=== PATIENT | male | born 1985 | race Caucasian/White ===

== ENCOUNTER 2023-03-17 12:48 | Emergency (ER) | payer OTHER, SELFPAY ==
--- NOTE | ~2023-03-17 | XR_ITS ---
EXAMINATION: XR CHEST CLINICAL INFORMATION: Reason for Exam shortness of breath COMPARISON: None TECHNIQUE: 2 views of the chest FINDINGS: Lines and tubes: None. Bibasilar opacities suspicious for infection or aspiration. No pleural effusion. No pneumothorax. Normal cardiomediastinal silhouette. XR/XR chest 2V IMPRESSION: Bibasilar opacities suspicious for infection or aspiration.
[2023-03-17 12:56] VITALS: BP 120/71; PULSE 103; RESP 16; TEMP 36.8; O2SAT 96; BMI 24.7
--- NOTE | 2023-03-17 12:59 | ED.GENADULT ---
HPI - General Adult General Chief complaint: Upper Respiratory Symptoms Stated complaint: congestion Time Seen by Provider: 03/17/23 13:43 Source: patient Mode of arrival: ambulatory Limitations: no limitations History of Present Illness HPI narrative: 37-year-old male with a history of opiate use disorder here with complaints of 1 week of chest congestion, productive cough with yellow phlegm, body aches. no shortness of breath, chest pain, headache, neck pain or neck stiffness, vomiting, diarrhea, skin rash. No recent travel or sick contact. Patient reports former history of IV drug abuse but is currently taking Suboxone Related Data Previous Rx's Medication Instructions Recorded amoxicillin 875 mg-potassium 1 tab PO BID #14 tabs 03/17/23 clavulanate 125 mg tablet benzonatate 200 mg capsule 200 mg PO TID PRN cough #30 caps 03/17/23 prednisone 20 mg tablet 40 mg (2 x 20 mg) PO DAILY 4 days 03/17/23 #8 tabs Allergies Allergy/AdvReac Type Severity Reaction Status Date / Time No Known Allergies Allergy Unverified 03/04/20 15:44 Review of Systems Review of Systems: Yes all other systems are reviewed and are negative Constitutional: Constitutional: Reports no additional constitutional complaints, Reports body ache(s), Denies chills, Denies fever(s), Denies headache(s) and Denies weakness Eyes: Eyes: Reports no additional eye complaints and Denies change in vision ENT: Reports system reviewed and no additional complaints, except as documented, Denies dizziness, Denies headache(s), Reports nasal congestion, Denies nasal discharge and Denies neck pain Cardiovascular: Cardiovascular: Reports no additional cardiovascular complaints, Denies chest pain, Denies leg edema and Denies dyspnea Respiratory: Respiratory: Reports no additional respiratory complaints and Denies dyspnea Gastrointestinal: Gastrointestinal: Reports no additional gastrointestinal complaints, Denies abdominal pain, Denies diarrhea, Denies nausea and Denies vomiting Genitourinary: Genitourinary: Denies urinary incontinence Musculoskeletal: Musculoskeletal: Reports no additional musculoskeletal complaints, Denies back pain, Denies arthralgias, Denies joint swelling, Denies neck pain, Denies numbness and Denies tingling Integumentary/Breasts: Skin/Breast: Reports system reviewed and no additional complaints, except as docu and Denies rash Neurologic: Reports system reviewed and no additional complaints, except as documented, Denies Abnormal speech present, Denies dizziness, Denies headache(s), Denies numbness, Denies tingling and Denies weakness PMFSH Past Medical History Attestation statement: The following information was validated with the patient. Source: old records reviewed and nursing notes reviewed Social History Social History Alcohol intake: never Smoked in Last 30 Days: Yes Use of substances other than those prescribed or required for medical reasons: No Substance Use Type: Former Substance User Advance Directives: No Advance Directives Information Provided: No Physical Exam ED Vital Signs: Vital Signs - 24 hr 03/17/23 12:56 03/17/23 13:25 03/17/23 14:00 Temperature 98.3 F 98.5 F Pulse Rate 103 H 98 Respiratory Rate 16 20 Blood Pressure 120/71 115/66 Pulse Oximetry 96 96 95 Oxygen Delivery Method Room Air Room Air 03/17/23 14:29 Temperature Pulse Rate 92 Respiratory Rate 19 Blood Pressure Pulse Oximetry Oxygen Delivery Method BMI result Body Mass Index 24.7 Const General: cooperative, healthy appearing, comfortable and no acute distress Orientation/consciousness: patient oriented x3 Limitations: no limitations HENMT Head: Yes normal to inspection Ears: hearing grossly normal bilaterally and TM abnormal bulging bilateral; not erythematous General nose exam: Normal external nose present Face and sinus: Yes normal facial exam Mouth: Normal oral and palatal mucosa present Throat: Yes posterior oropharynx normal, Yes tonsils normal and Yes uvula midline Eyes General: appearance normal, both eyes and all related structures Pupils: Equal, round and reactive pupils present Neck Neck: Yes normal visual inspection, Yes full ROM, Yes no lymphadenopathy and Yes no meningeal signs Chest Chest palpation & inspection: normal inspection of the chest Resp Effort & Inspection: normal respiratory effort Auscultation: wheezes Cardio Rate: regular rate Rhythm: regular rhythm Peripheral pulses: Peripheral pulses 2+ throughout GI Inspection: Yes normal to inspection Palpation (GI): Soft to palpation and nontender Auscultation: normal bowel sounds Back/Spine/Pelvis Thoracic/Lumbar Spine: thoracic and lumbar spine normal to inspection Skin General skin exam: no rashes or lesions noted Neuro General: patient oriented x3, no meningeal signs, no focal motor deficits and normal sensation to monofilament Cranial nerves: Yes Equal, round and reactive pupils present Cognition (Neuro): normal cognition Speech: No Abnormal speech present Gait exam (Neuro): Normal gait present Motor exam (neuro): 5/5 motor strength present throughout Extrem General: Yes normal to inspection, Yes no pedal edema and Yes no calf tenderness Course Course Course Narrative: RME- 37 year old male presents for evaluation of congetion, body aches. Plan for viral swabs and chest x-ray Reevaluation(s) Reevaluation #1: COVID and flu testing are negative. Chest x-ray is consistent with bilateral pneumonia. Patient is not hypoxic and ambulated in the emergency department with oxygen saturations greater than 93%. He is nontoxic appearing, afebrile. Patient can be discharged home with course of antibiotics, prednisone, p.r.n. Tessalon and albuterol MDI. Reviewed worrisome signs and symptoms of when to return to the emergency room. Comfortable plan for discharge home. Medications Administered Discontinued Medications Generic Name Dose Route Start Last Admin Trade Name Freq PRN Reason Stop Dose Admin Albuterol Sulfate 2 puff 03/17/23 13:52 03/17/23 14:28 Albuterol Sulfate 90 Mcg 8 Gm Inhaler INHALE 03/17/23 13:53 2 puff ONCE ONE Administration Albuterol/Ipratropium 3 ml 03/17/23 13:52 03/17/23 14:28 Albuterol/Iprat 2.5/0.5mg 3 Ml Ampul.Neb INHALE 03/17/23 13:53 3 ml ONCE ONE Administration Amoxicillin/Clavulanate Potassium 875 mg 03/17/23 13:59 03/17/23 14:04 Amoxicillin/Potassium Clav 875 Mg Tablet PO 03/17/23 14:00 875 mg ONCE ONE Administration Prednisone 60 mg 03/17/23 13:52 03/17/23 13:55 Prednisone 20 Mg Tablet PO 03/17/23 13:53 60 mg ONCE ONE Administration Medical Decision Making Medical Decision Making MDM Narrative: 37-year-old male with a history of opiate use disorder here with complaints of 1 week of chest congestion, productive cough with yellow phlegm, body aches. no shortness of breath, chest pain, headache, neck pain or neck stiffness, vomiting, diarrhea, skin rash. No recent travel or sick contact. Patient reports former history of IV drug abuse but is currently taking Suboxone patient has wheezing throughout. exam otherwise is benign. Vitals are stable. Will send testing for flu and COVID. Will obtain chest x-ray. Differential Diagnosis Differential Diagnoses: The differential diagnosis associated with the presentation includes Viral syndrome, pneumonia, influenza Admission/Observation Consideration of admission/observation: Escalation of care including admission/observation considered no hypoxia, afebrile, nontoxic-appearing. Does not require hospitalization or supplemental oxygen Lab Data MDM Lab Attestation statement: I reviewed the patient's lab results. COVID and flu testing are negative Labs: Lab Results 03/17/23 Range/Units 13:04 COVID-19 (AKASH) Negative (Negative) COVID-19 Clin Com See Note Influenza Type A ([facility]A) Negative (Negative) Influenza Type B ([facility]A) Negative (Negative) Influenza A & B Note See Note Independent Interpretation I performed an independent interpretation of an: Plain X-Ray Interpretation: I independently reviewed the x-ray and agree with the rad report Radiology Impression Discussion of test interpretation with radiology: I have reviewed the radiologist's reading. Radiologist Impression: [place] [id number] XRay Report Signed Patient: Abram Paz MR#: [id number] : 1985 Acct:[id number] Age/Sex: 37 / M ADM Date: 03/17/23 Loc: .ED Attending Dr: Ordering Physician: Andi Briceno Date of Service: 03/17/23 Procedure(s): XR chest 2V Accession Number(s): [id number] cc: Andi Briceno ; Physician,None ~ EXAMINATION: XR CHEST CLINICAL INFORMATION: Reason for Exam shortness of breath COMPARISON: None TECHNIQUE: 2 views of the chest FINDINGS: Lines and tubes: None. Bibasilar opacities suspicious for infection or aspiration. No pleural effusion. No pneumothorax. Normal cardiomediastinal silhouette. XR/XR chest 2V IMPRESSION: Bibasilar opacities suspicious for infection or aspiration. Prescription Management I considered prescription management with: Antibiotic Discharge Plan Discharge Clinical Impression: Pneumonia Patient Disposition: Home, Self-Care Instructions: Community Acquired Pneumonia (ED) Additional Instructions: Testing for flu and COVID are negative. Take your antibiotic and prednisone starting tomorrow Use the inhaler 2 puffs every 4 hours as needed for cough or wheezing Return for worsening symptoms Prescriptions: New prednisone 20 mg tablet 40 mg PO DAILY 4 Days Qty: 8 0RF amoxicillin-pot clavulanate 875-125 mg tablet 1 tab PO BID Qty: 14 0RF benzonatate 200 mg capsule 200 mg PO TID PRN (Reason: cough) Qty: 30 0RF Referrals: Physician,None [Primary Care Provider] - 5 days Stand Alone Forms: Work/School Release
[2023-03-17 13:25] VITALS: O2SAT 96
[2023-03-17 13:31] LABS: COVID-19 Test Negative (Negative); IDNOW Serial# 08D9AD1C; IDNOW Serial# BCCEAD1C; Influenza A Negative (Negative); Influenza B2 Negative (Negative)
[2023-03-17] MEDS: predniSONE 20 MG TABLET 60 MG PO (13:55)
[2023-03-17 14:00] VITALS: BP 115/66; PULSE 98; RESP 20; TEMP 36.9; O2SAT 95
[2023-03-17] MEDS: Amoxicillin/Potassium Clav 875 MG TABLET PO (14:04)
[2023-03-17] MEDS: Albuterol/Iprat 2.5/0.5MG 3 ML AMPUL.NEB INHALE (14:28)
[2023-03-17] MEDS: Albuterol Sulfate 90 MCG 8 GM INHALER 2 PUFF INHALE (14:28)
[2023-03-17 14:29] VITALS: PULSE 92; RESP 19; O2SAT 93
--- NOTE | 2023-03-17 14:49 | PC.NURSE ---
Amb pt with pulse ox, pt remained at 93% on RA, denies SOB/MEDINA
== END 2023-03-17 14:53 | disposition home or self-care (01) ==
PROVIDERS: Physician Assistant; Emergency Provider Emergency Medicine
DX: J18.9 Pneumonia, unspecified organism (principal); Z20.822 Contact with and (suspected) exposure to COVID-19; F11.20 Opioid dependence, uncomplicated
CPT/HCPCS: 71046; 87502; 87635; 94640; 99284